=== PATIENT | female | born 1980 | race Caucasian/White ===

== ENCOUNTER 2017-12-06 05:57 | Emergency (ER) | payer OTHER ==
[~2017-12-06] VITALS: Ht 162.6 cm; Wt 72.6 kg
[2017-12-06 06:13] VITALS: BP 149/100
== END 2017-12-06 07:44 | disposition home or self-care (01) ==
LOC: ER 06:01
DX: J45.909 Unspecified asthma, uncomplicated (principal); Z76.0 Encounter for issue of repeat prescription